=== PATIENT | male | born 1965 | race Caucasian/White ===

== ENCOUNTER 2017-02-11 10:14 | Emergency (ER) | payer MEDICAID ==
[~2017-02-11] VITALS: Ht 185.4 cm; Wt 67.8 kg
[~2017-02-11 10:14] MED LIST: AMPH10CA6 PO
[2017-02-11 10:23] VITALS: BP 129/88
[2017-02-11] MEDS ORDERED: DIPH,PERTUSS(ACELL),TET VAC/PF 0.5 ML IM-VACC ONE (12:00)
== END 2017-02-11 11:55 | disposition home or self-care (01) ==
LOC: ED 11:49
DX: S40.012A Contusion of left shoulder, initial encounter (principal); W19.XXXA Unspecified fall, initial encounter; Y93.89 Activity, other specified; Y99.8 Other external cause status; Y92.410 Unspecified street and highway as the place of occurrence of the external cause

== ENCOUNTER 2017-08-14 21:43 | Emergency (ER) | payer MEDICAID ==
[~2017-08-14] VITALS: Ht 185.4 cm; Wt 81.8 kg
[2017-08-14 21:48] VITALS: BP 136/90
[2017-08-14] MEDS ORDERED: ACETAMINOPHEN 325 MG TABLET ONE (23:16)
[2017-08-14] MEDS ORDERED: ACETAMINOPHEN 325 MG TABLET PO ONE (23:30)
== END 2017-08-14 23:40 | disposition home or self-care (01) ==
LOC: ED 23:25
DX: S06.0X0A Concussion without loss of consciousness, initial encounter (principal); I25.10 Atherosclerotic heart disease of native coronary artery without angina pectoris; J44.9 Chronic obstructive pulmonary disease, unspecified; I10 Essential (primary) hypertension; V13.4XXA Pedal cycle driver injured in collision with car, pick-up truck or van in traffic accident, initial encounter; Y93.55 Activity, bike riding; Y99.8 Other external cause status; Y92.410 Unspecified street and highway as the place of occurrence of the external cause
CPT/HCPCS: 70450; 99284

== ENCOUNTER 2018-05-01 23:20 | Emergency (ER) | payer MEDICAID ==
[~2018-05-01] VITALS: Ht 182.9 cm; Wt 64.5 kg
[2018-05-01 23:22] VITALS: BP 142/93
== END 2018-05-02 00:26 | disposition home or self-care (01) ==
LOC: ED 05-02 00:07
DX: S90.822A Blister (nonthermal), left foot, initial encounter (principal); S90.821A Blister (nonthermal), right foot, initial encounter; L03.116 Cellulitis of left lower limb; L03.115 Cellulitis of right lower limb; X58.XXXA Exposure to other specified factors, initial encounter; Y93.89 Activity, other specified; Y92.89 Other specified places as the place of occurrence of the external cause; Y99.8 Other external cause status; I25.2 Old myocardial infarction; J43.9 Emphysema, unspecified; I11.9 Hypertensive heart disease without heart failure; I25.10 Atherosclerotic heart disease of native coronary artery without angina pectoris; G20 Parkinson's disease
CPT/HCPCS: 99283

== ENCOUNTER 2019-11-02 23:54 | Emergency (ER) | payer SELFPAY ==
[~2019-11-02] VITALS: Ht 182.9 cm; Wt 82.6 kg
[2019-11-03] MEDS ORDERED: FLUORESCEIN OPHTHALMIC 1 MG STRIP ONE ×2 (00:24→00:36)
[2019-11-03] MEDS ORDERED: PROPARACAINE OPHTH 0.5%, 15ML ONE ×2 (00:24→00:36)
[2019-11-03] MEDS ORDERED: PROPARACAINE OPHTH 0.5%, 15ML EACHEYE ONE (00:30)
[2019-11-03] MEDS ORDERED: FLUORESCEIN/BENOXINATE 5 ML DROPS OP ONE (00:30)
[2019-11-03] MEDS ORDERED: FLUORESCEIN OPHTHALMIC 1 MG STRIP EACHEYE ONE (00:30)
[2019-11-03] MEDS ORDERED: MOXIFLOXACIN OPHTH O.5%, 3ML LEFTEYE SCH (01:00)
[2019-11-03 01:13] LABS: BASOPHILS # (AUTO) 0.04 x10^3/uL (0-0.1); BASOPHILS % (AUTO) 0 % (0-1); EOSINOPHILS # (AUTO) 0.08 x10^3/uL (0-0.4); EOSINOPHILS % (AUTO) 1 % (1-7); LYMPHOCYTES % (AUTO) 16 % (22-44); MD NO; MEAN CORPUSCULAR HEMOGLOBIN 31.7 pg (27.5-34.5); MEAN CORPUSCULAR HGB CONC 34.1 g/dL (33.2-36.2); MEAN CORPUSCULAR VOLUME 92.8 fL (81-97); MONOCYTES # (AUTO) 0.94 x10^3/uL (0.2-0.8); MONOCYTES % (AUTO) 9 % (2-9); NEUTROPHILS % (AUTO) 74 % (42-75); PLATELET COUNT 301 x10^3/uL (130-400); RED BLOOD COUNT 4.72 x10^6/uL (4.38-5.82); RED CELL DISTRIBUTION WIDTH 13.7 % (9.4-14.8)
[2019-11-03 01:22] LABS: ALBUMIN 3.3 g/dL (3.4-5.0); ANION GAP 6 mmol/L (5-15); CHLORIDE 104 mmol/L (98-107); CREATININE 1.15 mg/dL (0.7-1.3)
[2019-11-03] MEDS ORDERED: OMNIPAQUE 350 MG/ML, 75ML BOTTLE ONE (01:45)
[2019-11-03 01:56] VITALS: BP 136/95
== END 2019-11-03 02:49 | disposition home or self-care (01) ==
LOC: ED 11-03 02:01
DX: H16.012 Central corneal ulcer, left eye (principal); H57.12 Ocular pain, left eye; J43.9 Emphysema, unspecified; I25.2 Old myocardial infarction; I25.10 Atherosclerotic heart disease of native coronary artery without angina pectoris; I11.9 Hypertensive heart disease without heart failure; F17.210 Nicotine dependence, cigarettes, uncomplicated
CPT/HCPCS: 36415; 70481; 80048; 82040; 85025; 99285; 99406; Q9967

== ENCOUNTER 2020-04-15 17:19 | Emergency (ER) | payer MEDICAID ==
[~2020-04-15] VITALS: Ht 185.4 cm; Wt 73.8 kg
[2020-04-15 17:38] VITALS: BP 161/103
== END 2020-04-15 18:18 | disposition home or self-care (01) ==
LOC: ED 18:16
DX: L02.416 Cutaneous abscess of left lower limb (principal); L02.415 Cutaneous abscess of right lower limb; R00.0 Tachycardia, unspecified; I10 Essential (primary) hypertension
CPT/HCPCS: 99283

== ENCOUNTER 2020-11-17 09:13 | Emergency (ER) | payer MEDICAID ==
[~2020-11-17] VITALS: Ht 182.9 cm; Wt 81.2 kg
--- NOTE | 2020-11-17 09:21 | NUR ---
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
[2020-11-17] MEDS ORDERED: METHOCARBAMOL 750 MG TABLET ONE (09:47)
[2020-11-17] MEDS ORDERED: KETOROLAC 30 MG/1 ML ONE (09:48)
--- NOTE | 2020-11-17 09:58 | NUR ---
PT REFUSED ROBACIN AT THIS TIME, STATES SHE WANTS TO TRY TORADOL FIRST FOR PAIN.
[2020-11-17] MEDS ORDERED: KETOROLAC 30 MG/1 ML IM ONE (10:00)
[2020-11-17] MEDS ORDERED: METHOCARBAMOL 750 MG TABLET PO ONE (10:00)
--- NOTE | 2020-11-17 11:25 | NUR ---
PT RESTING IN BED, NO DISTRESS. UP FOR ERMD REASSESSMENT.
[2020-11-17 12:09] VITALS: BP 145/67
--- NOTE | 2020-11-17 12:09 | NUR ---
PT VERBALIZED UNDERSTANDING OF D/C ORDERS. PT HAS STEADY GAIT UPON D/C. HAS ALL OWN BELOGNINGS UPON D/C.
== END 2020-11-17 12:11 | disposition home or self-care (01) ==
LOC: ED 11:52
DX: M54.2 Cervicalgia (principal); M47.812 Spondylosis without myelopathy or radiculopathy, cervical region; F17.210 Nicotine dependence, cigarettes, uncomplicated; I25.2 Old myocardial infarction
CPT/HCPCS: 72050; 96372; 99283; J1885